=== PATIENT | female | born 1970 | race Caucasian/White ===

== ENCOUNTER 2017-04-07 14:28 | Emergency (ER) | payer MEDICAID, OTHER ==
[~2017-04-07] VITALS: Ht 160 cm; Wt 88.1 kg
[2017-04-07 14:40] VITALS: BP 128/81; PULSE 93; RESP 18; O2SAT 100
--- NOTE | 2017-04-07 15:04 | ED.REPORT ---
HPI-Facial Injury Date of Service April 07, 2017 ED Provider: Richard Fernández MD 46 y/o female with no pertinent hx presents to the ED complaining of nose injury , onset 30 minutes ago. The pt states she tripped and fell on concrete. Associated sx include numbness in the nose and epistaxis prior to arrival, now resolved. She denies LOC, headache, neck pain, weakness and lacerations inside the mouth. The pt last got her Tdap on 04/21/10. Nursing Notes Stated Complaint: GROUND LEVEL FALL INJURY TO SANTO Chief Complaint: Laceration Nursing Notes Reviewed: Yes (easy2map not reconciled) Allergies: Coded Allergies: Sulfa (Sulfonamide Antibiotics) (Verified Allergy, Mild, 04/07/17) sertraline (Verified Allergy, Mild, 04/07/17) Uncoded Allergies: SULFA (Allergy, Unknown, 04/07/17) Scheduled Cephalexin (Cephalexin) 500 Mg Tablet 500 MG PO TID Scheduled PRN Morphine Sulfate (Morphine Sulfate) 15 Mg Tablet 15 MG PO Q4H PRN PRN For Pain Ondansetron ODT (Ondansetron ODT) 8 Mg Tab.rapdis 8 MG PO Q4H PRN PRN For Nausea General Time Seen by Provider: 15:03 Chief Complaint Other (Nose injury) Hx Obtained From: Patient Arrived By: Walk-in Onset Occurred: Just prior to arrival Symptom Duration: Since onset Caused by: Fall Location: : Nose Quality: Painful Radiation: Does not radiate Severity: Current: Moderate Severity: Maximum: Moderate Recent Healthcare: No recent doctor visit Similar Sx Previous: No Past Medical History Past Medical History Bipolar Disorder Past Surgical History none reported Smoking History Unknown if Ever Smoker Ambulatory Status Independent Review of Systems Constitutional: Denies: Weakness - generalized Ears / Nose / Throat: Reports: Nose bleeding Musculoskeletal: Denies: Neck pain Neurologic: Reports: Numbness (nose ), Denies: Headache Complete sys rev & neg: except as marked. Physical Exam Initial Vital Signs Vital Signs (First) Date Time Temp Pulse Resp B/P Pulse Ox O2 Delivery O2 Flow Rate FiO2 04/07/17 14:40 36.3 93 18 128/81 100 Room Air Initial VS: Reviewed, Vital signs normal Respiratory: Breath sounds normal, Clear to auscultation, No respiratory distress Cardiovascular: Regular rate & rhythm, Heart sounds normal, Intact distal pulses Extremities: Vascular intact, Neuro intact Skin: Warm, Dry, No cyanosis Head / Eyes: Atraumatic, Normocephalic, PERRL, EOMI ENT: Tympanic membs NL, Mastoid area NL, Gums/dentition NL Trauma - General: Positive: Laceration Lacceration on the bridge of the nose extending to lateral sides of nose, can not tell if its through and through. Marked tenderness on nose and sinuses. No hemotympanum. No malocclusion. Neck: Atraumatic, Supple, Full range of motion, No swelling, Non-tender (no C- spine tenderness) Neurologic: Oriented X3, Speech NL, No motor deficits, No sensory deficits General/Constitutional: Awake, Alert, Cooperative Interpretation & Diagnostics PROCEDURE: CT FACE WITHOUT CONTRAST ([id number]) IMPRESSION: 1. Comminuted nasal bone fracture with overlying soft tissue laceration and edema. 2. The bony nasal septum appears midline. 3. Deformities of the inferior left orbital wall, lateral left maxillary wall, and left zygomatic arch probably are chronic. Please correlate clinically. 4. Mild ethmoid sinus disease. Otherwise the paranasal sinuses are clear. No hemorrhage or fluid are seen within the sinuses. Dictated by: Doni Botello M.D. on 04/07/2017 at 14:35 Approved by: Doni Botello M.D. on 04/07/2017 at 14:43 Re-Eval/Medical Decision Med Decision/Clinical Course This is a 46-year-old generally healthy female who tripped and fell and suffered a complex laceration of the nose. Conscious, she denies headache, she is isolated facialpain. Her tetanus is greater than 5 years old. Exam she is awake, alert, and appropriate without clinical signs of a head injury. Her spine exam is negative. He does have a complex nasal laceration and possible fracture. No ongoing epistaxis or findings of a septal hematoma. She has no findings of a dental injury or malocclusion. She has no intraoral injuries. She has no signs of orbital entrapment. With CT imaging of the face which revealed a complex nasal fracture and laceration, and suggest old facial fractures-which the patient indicates she does have a previous injury, she did not know at the time that she had fractures. The complexity of the nasal laceration location, ENT was consult and Dr. García came to the emergency department and performed laceration repair. The patient received a DTaP update. She was started on empiric cephalexin which continued for the next 5 days. She received some pain medicine. She is on Percocet normally, and requested some additional medicine I have written for some iron morphine tablets for the last 1-2 days. She will follow-up with Dr. garcía's office for continued wound care, and for further management of the nasal fracture. Source of Hx: Old records Re-Evaluation/Progress #1: Time of Eval: 15:26 Re-Evaluation/Progress Note: Rechecked pt. Informed the pt the imaging results are pending. Re-Evaluation/Progress #2: Time of Eval: 16:11 Re-Evaluation/Progress Note: Rechecked pt. Discussed imaging results and diagnosis. Informed the pt of the plan to discharge. Pt understands and agrees with plan. F/U instructions and RTER warning given. All questions addressed. Consultation : Referral / Consult Name: Bobby García MD Consulted With: ENT Call Returned at: 16:08 Lode Miner: Will see patient, Agrees with eval, Agrees with plan Differential Diagnosis: Positive: Laceration, Nasal bone fracture, Negative: Abrasion, Animal bite, Basilar skull fracture, Blow out fracture, Cervical spine injury, Gun shot wound, [place] fractures, Mandible fracture, Septal hematoma, Stab wound Counseled Regarding: Diagnosis, Lab results, Need for follow-up, When/why to return to ED Discharge & Departure Impression: Primary Impression: Fractured nose Encounter type: initial encounter Fracture type: closed Qualified Code: S02.2XXA - Fracture of nasal bones, initial encounter for closed fracture Additional Impression: Laceration of nose Encounter type: initial encounter Qualified Code: S01.21XA - Laceration without foreign body of nose, initial encounter Disposition: Home Discharge Condition All VS Reviewed: Yes Condition: Stable Additional Instructions: 1. U had a complex laceration of the nose that was repaired by the ENT surgeon Dr. García. The wound cleaned, no swimming or soaking. He should be seen immediately if you develop any signs of infection: Redness, increasing pain, fever, purulent drainage-university seen and rechecked immediately. Call Dr. García's office or return to the emergency department. 2. Your received a tetanus update today. 3. Take the antibiotics cephalexin 500 mg 3 times a day for 5 days 4. I have written for the immediate release morphine for pain control for the next day or 2. Note: Morphine is a narcotic and again causes drowsiness like the Percocet E Mendoza. Please let your provider who prescribes her Percocet noted you receive this medication. No driving for at least 4 hours after taking. Please also take ibuprofen 400-800 mg 3 times a day if needed. 5. You will need to follow-up with Dr. García for suture removal and further care of the naseal fracture. Please call for an appointment for next Wednesday or Wednesday. Referrals: Bobby García MD, Rodney MD Scribmatthew Attestation Portions of this note were transcribed by Rich Carrillo. I, , personally performed the history, physical exam and medical decision-making;I reviewed and confirmed the accuracy of the information in the transcribed note. Signed by [place]. 04/07/17 [id number] copies to: Bobby García MD; Harrison Flores MD, Matthew F MD April 07, 2017 15:04 Rich Carrillo April 07, 2017 15:12
[2017-04-07] MEDS ORDERED: Lidocaine-Epi-Tetracaine Solution 3 mL Syringe TOPICAL ONE (15:15)
[2017-04-07] MEDS ORDERED: oxyCODONE-Acetamin 5-325 mg Tablet PO ONE (15:15)
--- NOTE | 2017-04-07 15:45 | DRSVH ---
PROCEDURE: CT FACE WITHOUT CONTRAST ([id number]) INDICATIONS: Facial trauma TECHNIQUE: Noncontrast 1.5 mm thick axial images acquired from the mandible through the frontal sinuses, with co karo and sagittal reformatting. For radiation dose reduction, the following was used: automated ex posure control. COMPARISON: None. FINDINGS: Image quality: Diagnostic. Bones and teeth: There is a comminuted fracture involving the right and left nasal bones with minima l impaction evident along the right nasal bone. The bony nasal septum is midline. There is overlyin g soft tissue edema with corresponding laceration. No unexpected radiopaque foreign bodies are ident ified. No loculated fluid collections are seen. Deformity of the inferior left orbital wall is present with mild anterior bulging evident on the mid to posterior margin of the M. maxillary sinus. No definite acute fracture is identified with this ap pearance. The inferior rectus muscle extends very close to this defect, but does not appear to herni ate into the defect. Deformity along the lateral maxillary wall is present without definite acute fr acture evident, as well. There is also deformity of the left zygomatic arch, which also appears to b e chronic. The right zygomatic arch, orbital fairbanks, maxillary fairbanks, and the bilateral pterygoids are intact. T he mandible is intact. Sinuses: Mucosal thickening of the ethmoid air cells is present. No air-fluid levels are seen within the paranasal sinuses. Imaged mastoid air cells are clear. Soft tissues: No edema, masses, or fluid collections. No enlarged lymph nodes. No soft tissue lace rations or debris. Bilateral orbits are intact. No edema is seen within the intraconal or extracona l spaces. The extraocular muscles are symmetric bilaterally. IMPRESSION: 1. Comminuted nasal bone fracture with overlying soft tissue laceration and edema. 2. The bony nasal septum appears midline. 3. Deformities of the inferior left orbital wall, lateral left maxillary wall, and left zygomatic ar ch probably are chronic. Please correlate clinically. 4. Mild ethmoid sinus disease. Otherwise the paranasal sinuses are clear. No hemorrhage or fluid a re seen within the sinuses. Dictated by: Doni Botello M.D. on 04/07/2017 at 14:35 Approved by: Doni Botello M.D. on 04/07/2017 at 14:43
[2017-04-07] MEDS ORDERED: TdaP Vaccine 0.5 mL Inj IM ONE (16:05)
[2017-04-07] MEDS ORDERED: Ondansetron 8 mg ODT Tablet PO ONE (16:15)
[2017-04-07] MEDS ORDERED: HYDROmorphone 1 mg/mL Inj IM ONE (16:15)
[2017-04-07 16:30] VITALS: BP 135/85; PULSE 71; RESP 14; O2SAT 99
[2017-04-07] MEDS ORDERED: MORP15TA PO (16:32)
[2017-04-07] MEDS ORDERED: Bupivacaine 0.5%/EPI 50 mL Inj SUBQ ONE (16:35)
[2017-04-07] MEDS ORDERED: Lidocaine 2%-Epi 1:100,000 20 mL Inj SUBQ ONE (16:40)
[2017-04-07] MEDS ORDERED: ONDA8TAB10 PO (16:47)
[2017-04-07] MEDS ORDERED: CEPH500T PO (16:47)
[2017-04-07 17:27] VITALS: BP 117/81; PULSE 84; RESP 16; O2SAT 93
--- NOTE | 2017-04-08 01:48 | OP ---
[address] [address] OPERATIVE REPORT PATIENT: TOSHIA ROWE I : 1970 MR#: [id number] ADMIT: 04/07/2017 JOB ID: [id number] DATE OF SURGERY: SURGEON: PREOPERATIVE DIAGNOSIS(ES): Traumatic open nasal fracture with complex overlying laceration. POSTOPERATIVE DIAGNOSIS(ES): Traumatic open nasal fracture with complex overlying laceration. PROCEDURE: Reduction, open, of the nasal fracture with stabilization and complex repair of the laceration. HISTORY AND INDICATIONS: A 46-year-old woman who fell striking her face on concrete sustaining the injury described. PROCEDURE AND FINDINGS: With the patient in the procedure room in a semi-recumbent position. The face was prepped and draped in a sterile fashion. Local anesthesia obtained with 2% lidocaine, 1:100,000 epinephrine injected directly through the wound and also a right infraorbital nerve block was obtained. The laceration begins over the midportion of the nasal dorsum, then curves down along the nasal facial groove and then extends for a centimeter out into the cheek. The overall length is 5 cm. The superior portion of the right nasal bone is greenstick fractured at the nasion and is protruding through the wound. The remainder of the distal portion of the right nasal bone is depressed medially. The left nasal bone is slightly displaced laterally. The wound is copiously cleaned with saline and Betadine. The right nasal bone is elevated. The greenstick fracture of the proximal portion of the nasal bone is completed allowing the distal end of it to be brought down so that it can be approximated to the distal portion of the nasal bone. The periosteum and associated tissues were closed with interrupted 4-0 chromic suture. Then with manual compression, the left nasal bone was relocated medially. The muscular and deep soft tissues were then approximated with interrupted buried 4-0 chromic suture. There are two small triangular shaped flaps, which are approximated at the subcuticular layer with buried tip stitches of 4-0 chromic. The skin is then closed with a combination of interrupted and running 6-0 nylon. Gel-Foam pack is placed intranasally beneath the right nasal bone to encourage it to stay in the elevated position. Ointment and external dressing are applied. The patient tolerated the procedure well. She is discharged home with her . PLAN: They will avoid trauma. They will institute routine gentle wound care with ointment and dressings. Follow up in 5-7 days for suture removal and re-evaluation of the fractures. If, as the edema comes down, there is residual deformity, we would then plan an elective, in the surgery center, a closed reduction of any further deformity. The patient and her understand there may well be residual deformity even after suitable reduction. They understand there will definitely be a scar but we have done everything today we can to hopefully minimize the visual impact. She will be kept on antibiotics until seen for suture removal.
== END 2017-04-07 17:25 | disposition home or self-care (01) ==
LOC: SED 14:28
DX: S02.2XXA Fracture of nasal bones, initial encounter for closed fracture (principal); S01.21XA Laceration without foreign body of nose, initial encounter; W01.198A Fall on same level from slipping, tripping and stumbling with subsequent striking against other object, initial encounter; Y93.01 Activity, walking, marching and hiking; Y92.89 Other specified places as the place of occurrence of the external cause; Y99.8 Other external cause status; F31.9 Bipolar disorder, unspecified; Z23 Encounter for immunization; Z88.2 Allergy status to sulfonamides; Z88.8 Allergy status to other drugs, medicaments and biological substances
CPT/HCPCS: 13152; 70486; 90471; 90715; 96372; 99284; J1170